=== PATIENT | female | born 1955 | race Caucasian/White ===

== ENCOUNTER 2018-11-03 12:43 | Outpatient (CLI) | payer BC, MEDICARE ==
--- NOTE | 2018-11-03 15:40 | MRI ---
MRI CERVICAL SPINE WITHOUT CONTRAST: HISTORY: M47.12, M99.1 COMPARISON: None. FINDINGS: No acute fracture or malalignment. The cerebellar tonsils terminate above the level of the foramen m agnum. No marrow infiltrative process. The signal of the cord is normal, although limited due to motion. C2-C3: Normal disks. No neural foraminal or spinal canal narrowing. C3-C4: There is moderate uncinate process hypertrophy, worse on the left. Broad-based posterior dis k osteophyte complex. Spinal canal measures 9 mm. Moderate left and mild right-sided neural foramin al narrowing. C4-C5: Circumferential disk osteophyte complex. Moderate uncinate process hypertrophy. Moderate to severe right and moderate left neural foraminal narrowing. There is also effacement of the ventral CSF space. The spinal canal measures approximately 8 mm. Mild facet arthrosis. C5-C6: Circumferential disk osteophyte complex, Moderate uncinate process hypertrophy. Mild facet arthrosis. There is effacement of the ventral CSF space, with the spinal canal measuring approximate ly 8 mm. Severe left and moderate to severe right sided neural foraminal narrowing. C6-C7: Circumferential disk osteophyte complex. Mild facet arthrosis. Severe left-sided uncinate p rocess hypertrophy. Moderate to severe left and moderate right-sided neural foraminal narrowing. IMPRESSION: Multifocal advanced spondylosis, as described, with multilevel neural foraminal and spinal canal narr owing, worse at C4-C7. POS: [facility]
== END 2018-11-03 12:44 | disposition home or self-care (01) ==
LOC: SCSMRI 12:43
PROVIDERS: ATTEND Chiropractor
DX: M47.812 Spondylosis without myelopathy or radiculopathy, cervical region (principal); M48.02 Spinal stenosis, cervical region
CPT/HCPCS: 72141

== ENCOUNTER 2019-02-27 14:28 | Outpatient (CLI) | payer BC, MEDICARE ==
--- NOTE | 2019-02-27 14:51 | RAD ---
CHEST TWO VIEW: 02/27/19 HISTORY: Unintentional weight loss. COMPARISON: None. FINDINGS: There is a nodular density projecting in the right cardiophrenic angle. Lungs are otherwise clear wit hout pneumothorax or effusion. The cardiac silhouette is within normal limits. Scarring in the lung a pices. No acute osseous abnormality. IMPRESSION: Nodular density projecting in the right cardiophrenic angle of unknown significance. Nonemergent fol low-up CT of the chest may be beneficial if clinically warranted. Code T Code LN POS: HOME
== END 2019-02-27 14:29 | disposition home or self-care (01) ==
LOC: BICRAD 14:28
PROVIDERS: ATTEND Internal Medicine Gastroenterology
DX: R63.4 Abnormal weight loss (principal); R19.4 Change in bowel habit; R91.8 Other nonspecific abnormal finding of lung field
CPT/HCPCS: 71046

== ENCOUNTER 2019-03-08 09:29 | Outpatient (CLI) | payer BC ==
--- NOTE | 2019-03-08 10:55 | CT ---
EXAM: CT of the chest with contrast CT of the abdomen and pelvis with contrast HISTORY: Weight loss and abnormal chest x-ray COMPARISON: Chest x-ray 02/27/2019 TECHNIQUE: 1. Multiple contiguous axial images were obtained in a CT the chest with contrast. Coronal reformats were performed. 2. Multiple contiguous axial images were obtained and a CT of the abdomen and pelvis with contrast. O ral contrast was administered. Coronal reformats were performed. FINDINGS: CT CHEST: HEART: Normal in size without focal cardiac abnormality MEDIASTINUM: No hilar or mediastinal lymphadenopathy. The abnormality seen on chest x-ray represents a small amount of epicardial/mediastinal fat. LUNGS: No focal infiltrates, nodules, or masses. PLEURAL SPACE: No pneumothorax or pleural effusion. CHEST WALL SOFT TISSUES: Unremarkable CT ABDOMEN/PELVIS: ABDOMEN: LIVER: within normal limits. BILE DUCTS: Normal caliber. GALLBLADDER: No calcified gallstones. Normal caliber wall. PANCREAS: within normal limits. SPLEEN: within normal limits. A splenule is seen adjacent to the spleen. ADRENALS: within normal limits. KIDNEYS: within normal limits. PELVIS: REPRODUCTIVE ORGANS: No pelvic masses. URETERS: within normal limits. BLADDER: within normal limits. PERITONEUM: No ascites or free air, no fluid collection. BOWEL: Scattered diverticula in the colon. The small bowel and appendix are normal. MESENTERY AND RETROPERITONEUM: No enlarged mesenteric or retroperitoneal lymph nodes. VESSELS: Normal. ABDOMINAL WALL: within normal limits. OSSEOUS STRUCTURES: No acute abnormality. IMPRESSION: 1. No evidence of acute abnormality. 2. The abnormality seen on chest x-ray likely represents a small amount of fat 3. Diverticulosis
== END 2019-03-08 09:30 | disposition home or self-care (01) ==
LOC: BICCT 09:29
PROVIDERS: ATTEND Internal Medicine Gastroenterology
DX: R63.4 Abnormal weight loss (principal); R19.4 Change in bowel habit; R93.89 Abnormal findings on diagnostic imaging of other specified body structures; K57.30 Diverticulosis of large intestine without perforation or abscess without bleeding
CPT/HCPCS: 71260; 74177; 82565

== ENCOUNTER 2019-09-04 13:33 | Outpatient (CLI) | payer BC ==
--- NOTE | 2019-09-04 14:44 | RAD ---
CERVICAL SPINE SERIES WITH FLEXION AND EXTENSION: Date: 09/04/19 HISTORY: Left arm paresthesias. FINDINGS: The vertebral bodies are normal in height. There is severe disc narrowing at C4-5, C5-6, and C6-7. Th ere is restricted motion in this level on the flexion and extension views. No cecelia or retrolisthesi s. 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 POS: [id number]
== END 2019-09-04 13:34 | disposition home or self-care (01) ==
LOC: TBSIIMAG 13:33
PROVIDERS: ATTEND Surgery
DX: R20.2 Paresthesia of skin (principal); M47.812 Spondylosis without myelopathy or radiculopathy, cervical region
CPT/HCPCS: 72050